=== PATIENT | male | born 1990 | race Caucasian/White ===

== ENCOUNTER 2024-02-25 15:33 | Emergency (ER) | payer OTHER, SELFPAY ==
--- NOTE | ~2024-02-25 | XR_ITS ---
EXAMINATION: XR chest 2V 02/25/2024 16:05 INDICATION: Cough for 3 weeks PROCEDURE: 2 view chest COMPARISON: 2 view chest FINDINGS: The lungs are clear. The cardiomediastinal silhouette is within normal limits. There are no pleural effusions. There is no pneumothorax suspected. IMPRESSION: 1: NO ACUTE CARDIOPULMONARY DISEASE. Reviewed, dictated and finalized at location B.
[2024-02-25 15:40] VITALS: BP 139/76; PULSE 113; RESP 18; TEMP 38.7; O2SAT 100
--- NOTE | 2024-02-25 15:56 | ED.URI ---
HPI - URI/Sore Throat General Chief Complaint: Upper Respiratory Infection Stated Complaint: cough/chest tight Source: patient, RN notes reviewed and old records reviewed Mode of arrival: ambulatory Limitations: no limitations History of Present Illness HPI Narrative: 33 year old male who presents to [facility] care with complaints of 3 weeks of harsh cough with mucous production. Patient reports that he started with fever last night, body aches, and chills. Patient reports that he has chest tightness with cough and does feel some shortness of breath with exertion. Patient reports that he has been taking cough medication OTC, did take Covid test today which was negative. MD elicited complaint: fever, cough, rhinorrhea and nasal congestion Onset (ago): week(s) (3 weeks cough 2 days fever) Severity: moderate Able to tolerate fluids by mouth: Yes Treatments prior to arrival: cold medicine Related Data Home Medications Medication Instructions Recorded Confirmed atorvastatin 10 mg tablet 10 mg PO DAILY 02/25/24 02/25/24 Allergies Allergy/AdvReac Type Severity Reaction Status Date / Time No Known Allergies Allergy Verified 02/25/24 15:57 Review of Systems Review of Systems: CONSTITUTIONAL: Reports malaise, chills, sweats, or fever. EYES: Denies visual changes, redness, or discharge. ENT: Reports rhinorrhea, congestion,no sinus pain, no otalgia and no sore throat. CARDIOVASCULAR: Denies chest pain, palpitations, or edema. RESPIRATORY: Reports cough.? Denies acute dyspnea, reports some dyspnea with exertion GASTROINTESTINAL: Denies abdominal pain, nausea, vomiting, diarrhea SKIN: Denies rash or itching. MUSCULOSKELETAL: Reports myalgia. NEUROLOGIC: Denies headache. All systems reviewed & are unremarkable except as noted in HPI and below [facility] Family History Family History (Updated 02/28/24 @ 09:27 by Louann Haq NP) Father Heart disease Social History Social History (Updated 02/28/24 @ 09:27 by Louann Haq NP) Smoking status: Never smoker Alcohol intake: current Alcohol use details: social Substance use type: does not use Gender identity (if verbalized by the patient): Male Comments At time of signature, agree with nursing past medical, surgical, social and family history. There is no relevant family history pertinent to the presenting complaint Exam Narrative: GENERAL: Well-appearing, well-nourished, and in no acute distress. HEAD: Normocephalic EYES: PERRLA, conjunctivae clear ENT: Nares clear, turbinates edematous and erythematous, clear discharge. Mucous membranes moist. TM pearly ordoñez with dull light reflex bilaterally; no tragal tenderness. Oropharynx erythematous without lesions. Tonsils not enlarged and without exudate, no drooling, no hoarseness, no trismus, uvula midline. NECK: Supple. No lymphadenopathy CHEST: coarse bases on auscultation, breath sounds equal. No wheezing, rhonchi, rales, or stridor. No respiratory distress, speaks in full sentences.harsh coughSAO2 100% on room air HEART: Regular rate and rhythm. No murmur heard. SKIN: Warm, dry, no rash. NEURO: Alert and oriented x3. PSYCH: Normal mood and affect Course Course Emergency Course: Patient is aware of diagnosis, understands and agrees to treatment plan.? Anticipatory guidance given.? Patient agrees to follow-up as directed and is aware of reasons to seek care at the emergency department. Portions of this record may have been created with voice recognition software Level of Care: Express Care Visit Vital Signs Vital signs: Vital Signs Temperature 38.7 C H 02/25/24 15:40 Pulse Rate 113 H 02/25/24 15:40 Respiratory Rate 18 02/25/24 15:40 Blood Pressure 139/76 02/25/24 15:40 Pulse Oximetry 100 02/25/24 15:40 Oxygen Delivery Room Air 02/25/24 15:40 Temperature 38.7 C H 02/25/24 15:40 Pulse Rate 113 H 02/25/24 15:40 Respiratory Rate 18 0
== END 2024-02-25 16:30 | disposition home or self-care (01) ==
PROVIDERS: Emergency Provider Registered Nurse; PCP Internal Medicine
DX: J40 Bronchitis, not specified as acute or chronic (principal)
CPT/HCPCS: 71046; 99203; G0463

== ENCOUNTER 2024-08-16 08:53 | Emergency (ER) | payer OTHER, SELFPAY ==
--- OUTSIDE RECORDS SUMMARY | 2024-08-16 08:59 | XMS_ITS | Continuity of Care Document ---
Author Organization [facility] Address [address] [place] [address] Phone Care Team Providers Care At Risk Specialist Name Role Phone Walt Cuevas MD Unavailable Unavailable Allergies, Adverse Reactions, Alerts Substance Reaction Status Criticality No Known Drug Allergies Active No I nformation Medications Medication Instructions Dosage Effective Dates (start - stop) Status Comments atorvastatin 10 mg tablet take 1 tablet by oral route every day 10 MG - Active atorvastatin 10 mg tablet take 1 tablet by oral route every day 10 MG - No Longer Active Problems Condition Type Effective Dates (start - stop) Clini rubén Status Comments No Known Problems Procedures Procedure Date COMPREHEN METABOLIC PANEL CMP 4 LIPID PANEL ROUTINE VENIPUNCTURE PREVENTATIVE-EST: 18-39 COMPREHEN METABOLIC PANEL CMP 3 LIPID PANEL ROUTINE VENIPUNCTURE PREVENTATIVE-EST: 18-39 PREVENTATIVE-EST: 18-39 Results Test Name Date and Time Measure Units Reference Range Abnormal Flag Status Comments Panel Description: Comprehensive Metabolic Alesha l Sodium 09:19:37 139 mmol/L 135-145 Final Performed by:[email or web address] (532) Potassium 09:19:37 4.2 mmol/L 3.5-5.3 Final Performed by:TOS-[email or web address] (532) Chloride 09:19:37 103 mmol/L 98-107 Final Performed by:TOS-[email or web address] (532) CO2 09:19:37 26 mEq/L 19-30 Final Performed by:TOS-[email or web address] (532) Glucose Sep-23- 24 09:19:37 84 mg/dL 65-99 Final Performed by:TOS-[email or web address] (532) BUN Sep-23- 24 09:19:37 16 mg/dL 9-21 Final Performed by:TOS-[email or web address] (532) Creatinine Sep-23- 09:19:37 0.95 mg/dL 0.70-1.20 Final Performed by:TOS-[email or web address] (532) BUN/Crea Sep-- 09:19:37 17 Ratio 6-25 Final Performed by:TOS-[email or web address] (532) Calcium Sep-23- 09:19:37 9.7 mg/dL 8.6-10.4 Final Performed by:TOS-[email or web address] (532) Albumin Sep-23- 09:19:37 4.5 g/dL 3.5-5.1 Final Performed by:TOS-[email or web address] (532) Protein, T Sep-23- 09:19:37 7.5 g/dL 6.3-8.4 Final Performed by:TOS-[email or web address] (532) Globulin Sep-23- 24 09:19:37 3.0 Calc 1.4-3.7 Final Performed by:TOS-[email or web address] (532) A/G Sep-23- 09:19:37 1.5 Ratio 0.8-2.0 Final Performed by:TOS-[email or web address] (532) Bilirubin, T Sep-23- 09:19:37 0.5 mg/dL 0.2-1.3 Final Performed by:TOS-[email or web address] (532) Alk Phos Sep-- 09:19:37 61 U/L 38-126 Final Performed by:TOS-[email or web address] (532) ALT Sep-- 09:19:37 32 U/L 0-50 Final Performed by:TOS-[email or web address] (532) AST Sep-23- 09:19:37 30 U/L 10-59 Final Performed by:TOS-[email or web address] (532) eGFR Feb-- 09:19:37 >90 mL/min/1. 73m2 >90 Final CKD-EPI Equation (2020)Perfor med by:TOS-[email or web address] (532) Panel Description: Lipid Panel Final Cholesterol Feb- 09:19:37 250 mg/dL 0-200 H Final Performed by:TOS-[email or web address] (532) HDL,D 09:19:37 37 mg/dL 40-120 L Final Performed by:TOS-[email or web address] (532) Triglycerides 09:19:37 162 mg/dL 0-150 H Final Performed by:TOS-95 (532) Chol/HDL 09:19:37 6.8 Ratio 3.7-6.7 H Final Performed by:TOS-[email or web address] (532) LDLC 09:19:37 181 mg/dL 0-100 H Final Optimal <100Near to above optimal 100 - 129Borderlin e High 130 -159High 160 - 189Very High > 190Performed by:[email or web address] ([id number]) Advance Directives Directive Yes / No Effective Date File Name Life Support Not Answered N/A N/A Intubation Not Answered N/A N/A Antibiotics Not Answered N/A N/A IV Fluid Support Not Answered N/A N/A Tube Feed Not Answered N/A N/A Other Directive N/A N/A WARNING:The information contained in this section is historical and is provided for information only and does not constitute a legal document or any assurance that the information is still accurate. Please verify the information with the law of the legal document before using it for clinical purposes. Encounters Encounter Description Practice Location Reason(s) For Visit Diagnoses Date Provider Providers Copied on Encounter PREVENTATIVE -EST: [facility], [address], [place], [place], [id number] , tel: [phone] [facility] Chronic Conditions (chief complaint) Encounter for annual health examinationHyperlipi demia, unspecified hyperlipidemia typeSubacute coughEncounter for immunizationBody mass index [BMI] 26.0-26.9, adult Sep-2 4 Mason Godoy. [address] [place] [address], [address] , [place], [place], [id number] , [place]. tel: [phone] Referring Provider: Walt Cuevas, [address] [place] [address] [address], [place], [address] . tel:[phone] PREVENTATIVE -EST: [facility], [address], [place], [place], [address] , tel: [phone] [facility] Chronic Conditions (chief complaint) Encounter for annual health examinationHyperlipi demia, unspecified hyperlipidemia typeGastroesophageal reflux disease, unspecified whether esophagitis presentEncounter for immunizationBody mass index [BMI] 26.0-26.9, adult Sep-1 3 Mason Godoy. [address] [place] [address], [address] [place], [place], [address] , . tel: [phone] Referring Provider: Walt Cuevas [address] [place] [address] [address] [place], [address] . tel:[phone] PREVENTATIVE -EST: 18-39 [facility], [address], [place], [address] , tel: [phone] [facility] Chronic Conditions (chief complaint) Encounter for annual health examinationHyperlipi demia, unspecified hyperlipidemia typeEncounter for immunization Sep-0 1 Mason Godoy. [address] [place] [address], [address] [place], [place], [address] , . tel:[phone] Referring Provider: Walt Cuevas [address] [place] [address] [address] , [place], [address] . tel:[phone] [facility], [address], [place], [address] , tel:[phone] [facility] preventive exam (chief complaint) Encounter for preventive health examinationMild intermittent asthma without complication 9 Jai Stewart. [address] [place] [address], [address] [place], [place], [address] , . tel:[phone] Referring Provider: Walt Cuevas [address] [place] [address] [address] , [place], [address] . tel:[phone] Family History Family Member Type Diagnosis Age At Onset Father Problem (finding) Irritable bowel syndrom e Father Problem (finding) hypercholesterolemia Father Problem (finding) Obesity Father Problem (finding) alcoholism Father Problem (finding) premature coronary hear t disease Sister Problem (finding) asthma Immunizations Vaccine Date Status Comments Tdap administered Source: Source Unspecified Payers Payer name Insurance type Covered constitution party ID Authoriza tion(s) [employer] OPEN ACCESS I II III CI [id number] SOI Social History Type Description Quantity Date Captured Comments Alcohol Use Details 6 drinks 2-3 times weekly Caffeine Use Details Tobacco Use Status Smoking Status Never smoker Non-Smoking Tobacco Use Details Chewing: Age Stopped: 25 Chewing: No Details Available Sex Male Vital Signs Date / Time: Height Weight BMI Pulse Rate Blood Pressure Temperature Respiratory Rate Body Surface Area Head Circumference Head Circ. Percentile Wt./[place]. Percentile BMI percentile Pulse Ox Inhaled Ox 9:01 AM 67.00 in 78.018 kg (172.00 lbs) 26.9 4 kg/m eter (2) 72 /min 120/72 mm[Hg] 97.40 F 98 % Chief Complaint And Reason For Visit From encounter dated '03/20/2024 09:00'. Chronic Conditions (chief complaint). Description: *See Chronic Conditions HPI Reason For Referral Reason For Referral No Information Plan Of Treatment Date Type Action Status Goal Dietary manageme nt education, guidance, and counseling completed Goal Dietary manageme nt education, guidance, and counseling completed Appointment Jonathon Wright BOOKED Patient Education High Cholesterol: Care Instructions completed History Of Present Illness Encounter Date Complaint History Of Prese nt Illness Chronic Conditions *See Chronic Conditions HPI Chronic Conditions *See Chronic Conditions HPI Chronic Conditions *See Chronic Conditions HPI preventive exam Men's preventive visit. Patient Health Questionnaire (PHQ-2) is negative. Patient is on a healthy diet. He has weight gain. Concern(s)/Requests Detail: He is here today to get established as a new pt of this practice. He is engaged- getting August 2020- [place]in [place] or [place] . He and his fiancee have a son who is 4. He at [employer]. He denies recent PCP. He states he does not get flu vaccines, he did have tetanus updated 2 years ago. He denies any surgeries. He has family history of premature cardiac disease in father and paternal grandfather. Notes his mother is healthy. Relevant history is positive for tobacco use, alcohol use. Relevant history is negative for passive smoke exposure, passive vaping exposure. Functional Status Date Functional Assessmen t No Information Instructions Date Instruction Additional Infor zahraa Likely post viral co ugh, should resolve. Related to Subacute cough Declined a flu shot today. Relat ed to Encounter for immunization Continue medications at current dose/regimen and check CMP and Lipids. Related to Hyperlipidemia, unspecified hyperlipidemia type Get appropriate vacc iris. Return 1 year Related to Encounter for annual health examination Giving encouragement to exercise Related to Body mass index (BMI) 26.0-26.9, adult Dietary management e ducation, guidance, and counseling Related to Body mass index (BMI) 26.0-26.9, adult Disease process Declines a flu shot. Related to Encounter for immunization Discussed diet and l ifestyle modification. Related to Gastroesophageal reflux disease, unspecified whether esophagitis present Continue medications at current dose/regimen and check CMP and Lipids. Related to Hyperlipidemia, unspecified hyperlipidemia type Get appropriate vacc iris. Return 1 year Related to Encounter for annual health examination Disease process Dietary management e ducation, guidance, and counseling Related to Body mass index (BMI) 26.0-26.9, adult Giving encouragement to exercise Related to Body mass index (BMI) 26.0-26.9, adult Get vaccines. Related to Encou nter for immunization Start atorvastatin. Related to H yperlipidemia, unspecified hyperlipidemia type Get appropriate vaccines. Relate d to Encounter for annual health examination Disease process He notes he had chil dhood asthma which I have pretty much outgrown'. He denies use of inhaler for 'years. Related to Mild intermittent asthma without complication He is here to get es tablished as a new pt of this practice. He did not have a previous PCP. He is engaged- getting 08/2020. He and his fiancee have a 4 yr old son. 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 He does not smoke- used to chew tobacco. He drinks beer - about 6 cans, 2-3 times/week. He declines flu vaccine. Notes he had his tetanus updated about 2 yeas ago. Denies surgeries in the past. Wants to check labs due to paternal family history of cardiac events prior to 50. Related to Encounter for preventive health examination Disease prevention Assessments Type Assessment Date assessment Encounter for annual health exam ination assessment Hyperlipidemia, unspecified hype rlipidemia type assessment Subacute cough assessment Encounter for immunization Feb- assessment Body mass index (BMI) 26.0-26.9, adult Mental Status Date Cognitive Assessment Orientation - Arabi ed to time, place, person, situation. Patient Care Teams Name Effective Dates (start - stop) Status Members No Information
--- OUTSIDE RECORDS SUMMARY | 2024-08-16 09:00 | XMS_ITS | Continuity of Care Document ---
Author Organization [facility] Address [address] [place] [address] Phone Care Team Providers Care Bioinformatics Support Specialist Name Role Phone Walt Cuevas MD [...] Provider Providers Copied on Encounter PREVENTATIVE -EST: [facility], [address], [place], [place], [address] , tel: [phone] [facility] Chronic Conditions (chief complaint) Encounter for annual health examinationHyperlipi demia, unspecified hyperlipidemia typeSubacute coughEncounter for immunizationBody mass index [BMI] 26.0-26.9, adult Sep-2 4 Mason Godoy. [address] [place] [address], [address] , [place], [place], [address] , [place]. tel: [phone] Referring Provider: Walt Cuevas, [address] [place] [address] [address], [place], [address] . tel:[phone] PREVENTATIVE -EST: [facility], [address], [place], [place], [address] , tel: [phone] [facility] Chronic Conditions (chief complaint) Encounter for annual health examinationHyperlipi demia, unspecified hyperlipidemia typeGastroesophageal reflux disease, unspecified whether esophagitis presentEncounter for immunizationBody mass index [BMI] 26.0-26.9, adult Sep-1 3 Mason Godoy. [address] [place] [address], [address] [place], [place], [address] , . tel: [phone] Referring Provider: Walt Cuevas [address] [place] [address] [address] [place], [address] . tel:[phone] PREVENTATIVE -EST: 18-39 [facility], [address], [place], [address] , tel: [phone] [facility] Chronic Conditions (chief complaint) Encounter for annual health examinationHyperlipi demia, unspecified hyperlipidemia typeEncounter for immunization Sep-0 1 Mason Godoy. [address] [place] [address], [address] [place], [place], [address] , . tel:[phone] Referring Provider: Walt Cuevas [address] [place] [address] [address] , [place], [address] . tel:[phone] [facility], [address], [address] , tel:[phone] [facility] preventive exam (chief complaint) Encounter for preventive health examinationMild intermittent asthma without complication 9 Jai Stewart. [address] [place] [address], [address] [place], [place], [address] , . tel:[phone] Referring Provider: Walt Cuevas [address] [place] [address] [address] , [place], [address] . tel:[phone] Family History Family Member Type Diagnosis Age At Onset Father Problem (finding) Irritable bowel syndrom e Father Problem (finding) hypercholesterolemia Father Problem (finding) Obesity Father Problem (finding) alcoholism Father Problem (finding) premature coronary hear t disease Sister Problem (finding) asthma Immunizations Vaccine Date Status Comments Tdap administered Source: Source Unspecified Payers Payer name Insurance type Covered alliance party ID Authoriza tion(s) [employer] OPEN ACCESS I II III CI [id number] SOI Social History Type Description Quantity Date [...] He is engaged- getting August 2020- 'in [place] or [place] . He and his fiancee have a son who is 4. He at [employer]. He denies recent PCP. He states he [...] 4 yr old son. 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 He does not smoke- used [...] Mental Status Date Cognitive Assessment Orientation - [place] ed to time, place, person, situation. Patient Care Teams Name Effective Dates (start - stop) Status Members No Information
[2024-08-16 09:02] VITALS: BP 135/73; PULSE 107; RESP 20; TEMP 38.2; O2SAT 97
--- NOTE | 2024-08-16 09:03 | ED_ITS ---
HPI - URI/Sore Throat General Chief Complaint: Upper Respiratory Infection Stated Complaint: fever/aches Time Seen by Provider: 08/16/24 09:31 Source: patient and RN notes reviewed Mode of arrival: ambulatory Limitations: no limitations History of Present Illness HPI Narrative: 33 year old male presents with concern for fever, body aches, nasal congestion and rhinorrhea that started yesterday. Reports sore throat. Reports he left work because he was sick. He has taken an [id number] allergy medicine that helped with his runny nose. MD elicited complaint: cough and sore throat Related Data Home Medications ?Medication ?Instructions ?Recorded ?Confirmed ?Last Taken ?Type atorvastatin 10 mg tablet 10 mg PO DAILY 02/25/24 02/25/24 Unknown History Allergies Allergy/AdvReac Type Severity Reaction Status Date / Time No Known Allergies Allergy Verified 08/16/24 09:24 Review of Systems Review of Systems: CONSTITUTIONAL: Reports malaise, fever. EYES: Denies visual changes, redness, or discharge. ENT: Reports rhinorrhea, congestion, sore throat. CARDIOVASCULAR: Denies chest pain, palpitations, or edema. RESPIRATORY: Denies cough. Denies dyspnea. GASTROINTESTINAL: Denies abdominal pain, nausea, vomiting, diarrhea SKIN: Denies rash or itching. MUSCULOSKELETAL: Reports myalgia. NEUROLOGIC: Denies headache. All systems reviewed & are unremarkable except as noted in HPI and below PMFSH Family History Family History (Updated 02/28/24 @ 09:27 by Louann Haq NP) Father Heart disease Social History Social History (Updated 02/28/24 @ 09:27 by Louann Haq NP) Smoking status: Never smoker Alcohol intake: current Alcohol use details: social Substance use type: does not use Gender identity (if verbalized by the patient): Male Comments At time of signature, agree with nursing past medical, surgical, social and family history. There is no relevant family history pertinent to the presenting complaint Exam Narrative: GENERAL: Nontoxic-appearing, well-nourished, and in no acute distress. HEAD: Normocephalic EYES: PERRLA, conjunctivae clear ENT: Nares clear. Mucous membranes moist. TM pearly ordoñez with sharp light reflex bilaterally; no tragal tenderness. Oropharynx erythematous without lesions. Tonsils not enlarged and without exudate, no drooling, no hoarseness, no trismus, uvula midline. NECK: Supple. No lymphadenopathy CHEST: Clear to auscultation, breath sounds equal. No wheezing, rhonchi, rales, or stridor. No respiratory distress, speaks in full sentences. HEART: Regular rate and rhythm. No murmur heard. SKIN: Warm, dry, no rash. NEURO: Alert and oriented x3. PSYCH: Normal mood and affect Course Course Emergency Course: Patient is aware of diagnosis, understands and agrees to treatment plan. Anticipatory guidance given. Patient agrees to follow-up as directed and is aware of reasons to seek care at the emergency department. Portions of this record may have been created with voice recognition software Level of Care: Express Care Visit Vital Signs Vital signs: Reviewed. MDM - URI/Sore Throat MDM Narrative Medical decision making narrative: Differential diagnosis considered: Babcock virus, strep pharyngitis, allergic rhinitis, upper respiratory tract infection, sinusitis, rhinosinusitis, nasopharyngitis. viral pharyngitis, otitis media, otitis externa, pneumonia, bronchitis, viral cough syndrome, viral syndrome, and influenza. Exam findings show no acute concerns or changes; patient is non-toxic appearing and is in no distress. Patient is appropriate for outpatient treatment and follow-up. Lab Data Attestation: I reviewed the patient's lab results. Critical Care Time Critical Care Time Critical Care Time: No Discharge Plan Discharge Clinical Impression: Influenza-like illness Patient Disposition: Home, Self-Care Condition: Stable Instructions: Viral Syndrome (ED) Additional Instructions: Your rapid COVID and flu tests are negative Your rapid strep swab was negative today at [facility]. A throat culture will be sent to the laboratory for further testing. If the test is positive, you will receive a phone call within 48 hours and an appropriate antibiotic will be initiated at that time. Your symptoms are likely due to a viral illness, which is not treated with antibiotics. Viral symptoms can be present for up to a few weeks. -Alternate Tylenol and Motrin per package directions for fever or pain. -Antihistamine medication such as Benadryl at night and Zyrtec during the day can help improve symptoms. -Eat and drink things that are easy to swallow, like tea or soup, or popsicles to suck on. -Oral rinses such as: Salt water gargles and/or may use topical anesthetic (eg. Chloraseptic spray) or lozenges to relieve dryness or throat pain). -Frequent hand washing or hand harness tier is one of the best ways to prevent spread of infection. -Follow up with primary care provider in 2-3 days if condition is not improving; or seek ER visit if you have trouble breathing, cannot drink enough fluids, have muffled voice, difficulty opening your mouth, or severe swelling. Patient Language: Arabic Prescriptions: No Action atorvastatin 10 mg tablet 10 mg PO DAILY azithromycin 250 mg tablet See Rx Instructions .ROUTE .COMPLEX Qty: 6 0RF Rx Instructions: For 250 mg dose pack: take 500 mg today (day 1), then 250 mg for 4 days (days 2-5) prednisone 20 mg tablet 20 mg PO BID Qty: 10 0RF albuterol sulfate 90 mcg/actuation HFA aerosol inhaler 2 puff inhalation QID PRN (Reason: shortness of breath or wheezing) Qty: 6.7 0RF Follow-up/Referrals: PHYSICIAN NOT ON STAFF,NONSTAFF [Primary Care Provider] - Stand Alone Forms: Work/School Release IP Time of Disposition: 09:30
[2024-08-16 09:24] LABS: EDCOVIDSCREEN Negative (Negative); EDINFLUASCREEN Negative (Negative); EDINFLUBSCREEN Negative (Negative); EDSTREPNEGPOS1 Negative (Negative)
== END 2024-08-16 09:32 | disposition home or self-care (01) ==
PROVIDERS: Emergency Provider Nurse Practitioner
DX: J11.1 Influenza due to unidentified influenza virus with other respiratory manifestations (principal); Z20.822 Contact with and (suspected) exposure to COVID-19
CPT/HCPCS: 87081; 87426; 87804; 87880; 99213; G0463